=== PATIENT | female | born 1990 | race Caucasian/White ===

== ENCOUNTER 2022-04-24 23:15 | Emergency (ER) | payer BC, SELFPAY ==
--- NOTE | ~2022-04-24 | CT_ITS ---
EXAMINATION: CTA chest PE protocol DATE: 04/25/2022 01:58 INDICATION: Shortness of breath. TECHNIQUE: Computed tomography angiography (CTA) of the chest was performed with 100 mL Omnipaque-350 intravenous contrast timed to evaluate the pulmonary arteries. Coronal maximum intensity projection 3D-reconstructions were created by the technologist. Automated exposure control and iterative reconst ruction technique were employed. The dose-length product was 950.34 mGy-cm. COMPARISON: None. FINDINGS: There is a large right pleural effusion. There is a small right pneumothorax. There is smoo th septal thickening in the lungs, consistent with mild pulmonary edema. There are airspace opacities and volume loss involving the majority of right lung. There is mild atelectasis in left lung. There are mild airspace opacities in left lower lobe. Cardiomegaly is noted. No pericardial effusion. There is no pulmonary embolus. There is an aberrant right subclavian artery. There is mild periportal lymp hadenopathy. There are old healed right rib fractures. IMPRESSION: 1. No pulmonary embolus. Sensitivity is mildly decreased by motion artifact. 2. Large right hydropneumothorax with large fluid component and small gas component. 3. Airspace opacities and volume loss involving right lung, likely a combination of atelectasis and p neumonia. Mild airspace opacities in left lower lobe, consistent with pneumonia. 4. Mild periportal lymphadenopathy, likely reactive. Reviewed, dictated and finalized at location A. IMPRESSION: 1. No pulmonary embolus. Sensitivity is mildly decreased by motion artifact. 2. Large right hydropneumothorax with large fluid component and small gas compo nent. 3. Airspace opacities and volume loss involving right lung, likely a combinatio n of atelectasis and pneumonia. Mild airspace opacities in left lower lobe, con sistent with pneumonia. 4. Mild periportal lymphadenopathy, likely reactive.
[2022-04-24 23:26] VITALS: RESP 25; O2SAT 96
[2022-04-24 23:35] VITALS: O2SAT 97
--- NOTE | 2022-04-24 23:38 | ECG_ITS ---
Measurements Intervals [place] Rate: 131 P: 79 CO: 146 QRS: -57 QRSD: 94 T: 62 QT: 279 QTc: 413 Interpretive Statements SINUS TACHYCARDIA LEFT AXIS DEVIATION [QRS AXIS < -30] S1-S2-S3 PATTERN, CONSISTENT WITH PULMONARY DISEASE, RVH, OR NORMAL VARIANT INCOMPLETE RIGHT BUNDLE BRANCH BLOCK [90+ ms QRS DURATION, TERMINAL R IN V1/V2, 40+ ms S IN I/aVL/V4/V5/V6] NO PREVIOUS ECG AVAILABLE FOR COMPARISON Electronically Signed On 04-29-2022 10:19:15 CDT by Salbador Moon M.D.
--- NOTE | 2022-04-24 23:38 | ED.GENADULT ---
HPI - General Adult General Chief complaint: Shortness of Breath/Dyspnea <Georges Goff MD - Last Filed: 04/25/22 06:58> Stated complaint: SOB Sat 78% RA <Georges Goff MD - Last Filed: 04/25/22 06:58> Time Seen by Provider: 04/24/22 23:26 <Georges Goff MD - Last Filed: 04/25/22 06:58> History of Present Illness HPI narrative: 31-year-old female presented to the emergency department for evaluation of worsening shortness of breath. Patient states on April 08 she began developing some cough and shortness of breath. Patient states that she did take multiple COVID test that were negative. Patient reports tonight she had worsening shortness of breath. Patient does have chronic wounds to both upper extremities. Patient states she has not had follow-up for these wounds. Patient states that she did last injected fentanyl approximately 3 days ago. <Georges Goff MD - Last Filed: 04/25/22 06:58> 31-year-old female presented to the emergency department for evaluation of worsening shortness of breath. Patient states on April 08 she began developing some cough and shortness of breath. Patient states that she did take multiple COVID test that were negative. Patient reports tonight she had worsening shortness of breath. Patient does have chronic wounds to both upper extremities. Patient states she has not had follow-up for these wounds. Patient states that she did last injected fentanyl approximately 3 days ago. <Bobby Helton MD - Last Filed: 04/25/22 08:34> Related Data Allergies/adverse reactions: Allergies Allergy/AdvReac Type Severity Reaction Status Date / Time tramadol Allergy Intermediate Itching Verified 04/25/22 05:30 <Georges Goff MD - Last Filed: 04/25/22 06:58> Review of Systems Review of Systems: CONSTITUTIONAL: Fevers and generalized weakness EYES: Denies visual changes, redness, or discharge. ENT: Denies rhinorrhea, congestion, sore throat, or otalgia. CARDIOVASCULAR: Worsening edema RESPIRATORY: Shortness of breath GASTROINTESTINAL: Denies abdominal pain, nausea, vomiting, or diarrhea. GENITOURINARY: Denies dysuria or hematuria. SKIN: See HPI MUSCULOSKELETAL: Denies back pain, joint pain, or myalgia. NEUROLOGIC: Denies headache, numbness, or weakness. <Georges Goff MD - Last Filed: 04/25/22 06:58> [facility] Past Medical History Medical History: Medical History (Updated 04/25/22 @ 06:46 by Jaclyn Booth DO) Anxiety Borderline hypertension Degenerative disc disease Hypothyroidism Opioid abuse <Georges Goff MD - Last Filed: 04/25/22 06:58> Surgical History Surgical History: Surgical History (Updated 04/25/22 @ 06:31 by Jaclyn Booth DO) No history of previous surgery <Georges Goff MD - Last Filed: 04/25/22 06:58> Family History Family History: Family History Father Hypertension Mother Alcoholism Degenerative disc disease Drug addiction <Georges Goff MD - Last Filed: 04/25/22 06:58> Social History Social History: Social History (Updated 04/25/22 @ 06:34 by Jaclyn Booth DO) Social History: She has been addicted to opiates since 2016. She used daily and was in remission for urine half between 2017 in 2019. She started using again at that time in tries to inject fentanyl IV but due to scarring has been doing subcutaneous administration. Smoking status: Never smoker Alcohol intake: never Substance use: current Substance use type: heroin and opiates Other substance usage details: Fentanyl daily Additional living arrangements comments: She is single and lives alone. She has a small dog. Additional occupation/education comments: She has a master's degree. 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 <Georges Goff MD - Last Filed: 04/25/22 06:58> Exam Narrative: APPEARANCE
--- NOTE | 2022-04-24 23:53 | PC.NURSE ---
Pt very SOB, RR40 and SpO2 78% on RA while in triage, diaphoretic and very labored breathing. Pt placed on NRB@ 15L and O2 sat up to 95-97% and states that she is feeling much better.
[2022-04-25] VITALS (30 sets, daily range): BP systolic 110–137; BP diastolic 53–75; PULSE 103–127; RESP 20–44; TEMP 38.7; O2SAT 94–100
[2022-04-25] MEDS: SODIUM CHLORIDE 0.9% IV 1,000 ML 999 ML IV CONT (00:04)
[2022-04-25 00:06] LABS: Alveolar/Arterial O2 Gradient 580.5 mmHg; Fractional Inspired Oxygen 100 %; HCO3 ABG 26.6 mEq/l (22.0-26.0); Modified Allen's Test Unable to perform; Oxygen Saturation ABG 97.1 % (95.0-100.0); Oxyhemoglobin 94.7 % THb (90.0-100.0); PCO2 ABG 41.6 mmHg (35.0-45.0); PO2 ABG 90.9 mmHg (80.0-100.0); PO2 FiO2 Ratio Arterial Blood 0.91 %; Site Drawn RIGHT RADIAL; Total Hemoglobin 8.9 g/dL (12.0-18.0); pH ABG 7.424 (7.350-7.450)
[2022-04-25 00:07] LABS: Device NON-REBREATHER MASK
[2022-04-25 00:08] LABS: Basophils Absolute Auto 0.1 K/mm3 (0.0-0.1); Basophils Percent Auto 0.4 % (0.2-1.2); Eosinophils Absolute Auto 0.1 K/mm3 (0-0.3); Eosinophils Percent Auto 0.3 % (0-4.4); Immature Granulocyte Absolute 0.14 K/mm3 (0.00-0.031); Immature Granulocyte Percent A 0.9 % (0-0.5); Lymphocytes Absolute Auto 2.78 K/mm3 (0.9-3.2); Mean Corpuscular HGB Conc 27.6 g/dl (32-36); Mean Corpuscular Hemoglobin 18.4 pg (26-34); Mean Corpuscular Volume 66.7 fl (80-100); Mean Platelet Volume 10.1 fl (7.4-10.4); Monocytes Absolute Auto 1.3 K/mm3 (0.1-0.6); Monocytes Percent Auto 7.7 % (2.6-8.5); Neutrophils Absolute Auto 12.1 K/mm3 (1.3-6.7); Neutrophils Percent Auto 73.7 % (45.5-73.1); Nucleated Red Blood Cells Absolute Auto 0.3 K/mm3 (0.0-0.012); Nucleated Red Blood Cells Perc 1.6 % (0.0-0.2); Platelet Count Result 505 k/mm3 (150-375); Red Blood Count 4.35 M/mm3 (4.2-5.4); Red Cell Distribution Width 22.5 % (11.5-14.5); White Blood Count 16.4 K/mm3 (4.5-10.0)
[2022-04-25 00:18] LABS: Hypochromasia 2+ (NORMAL); Platelet Estimate Increased (Adequate)
[2022-04-25] MEDS: ALBUTEROL SULFATE NEB 2.5 MG/3 ML INH 5 MG INHALATION (00:20)
[2022-04-25 00:23] LABS: Alanine Aminotransferase 28 U/L (6-35); Albumin Level 3.6 g/dL (3.5-5.1); Alkaline Phosphatase 245 U/L (38-126); Anion Gap 14 mmol/L (8-16); Aspartate Amino Transferase 70 U/L (14-36); Bilirubin,Total 1.3 mg/dL (0.2-1.3); Blood Urea Nitrogen 19 mg/dL (7-17); Calcium 7.6 mg/dL (8.4-10.2); Carbon Dioxide 24 mmol/L (22-30); Chloride 94 mmol/L (98-107); Estimated CRCL calculation 118 ml/min; Estimated Glomerular Filt Rate > 60; Glucose 151 mg/dL (65-110); Potassium 4.8 mmol/L (3.4-5.0); Sodium 132 mmol/L (137-145)
[2022-04-25 00:31] LABS: NT Pro B Type Natriuretic Pept 3540 pg/mL (5-100)
--- NOTE | 2022-04-25 00:42 | PC.NURSE ---
POC preg test resulted negative
[2022-04-25 00:48] LABS: Appearance Urine Clear (Clear); Bilirubin Urine 1+ (Negative); Blood Urine 1+ (Negative); Color Urine Amber (Yellow); Glucose Urine UA Negative (Negative); Ketones Urine Negative (Negative); Leukocyte Esterase Ur Negative LEU/UL (Negative); Nitrate Urine Negative (Negative); Protein Urine 2+ mg/dL (Negative); Specific Grav Ur 1.025 (1.001-1.035); pH Urine 5.5 (5.0-9.0)
[2022-04-25 00:50] LABS: D Dimer 6.34 ug/mL (<0.48)
[2022-04-25 00:51] LABS: Mucus Urine Rare /lpf; Squamous Epithelial Cell Urine Rare /hpf (Few); WBC Urine 0-3 /hpf
[2022-04-25 00:52] LABS: Add Urine Microscopic? YES
[2022-04-25 00:54] LABS: Influenza A QL RT-PCR Negative (Negative); Influenza B QL RT-PCR Negative (Negative); SARS-CoV-2 RNA PCR Negative
[2022-04-25 01:06] LABS: Amphetamine Screen Urine Negative (Negative); Barbiturate Screen Urine Negative (Negative); Benzodiazepines Screen Urine Negative (Negative); Cannabinoid Screen Urine Negative (Negative); Cocaine Screen Urine Negative (Negative); Methadone Screen Urine Negative (Negative); Opiate Screen Urine Negative (Negative); Phencyclidine Screen Urine Negative (Negative)
[2022-04-25] MEDS: FUROSEMIDE INJ 40 MG/4 ML VIAL IV PUSH (02:26)
--- NOTE | 2022-04-25 02:40 | PC.NURSE ---
Temp upon axillary upon arrival was 103.5 now it is 99.5 after admin of APAP IV
[2022-04-25 03:15] LABS: Troponin I 0.037 ng/mL (0.000-0.034)
[2022-04-25 05:16] LABS: Troponin I 0.039 ng/mL (0.000-0.034)
--- NOTE | 2022-04-25 06:00 | PM.IMHP ---
H&P: HPI History of Present Illness Date/Time: 04/25/22 06:00 Chief Complaint: Cough, fever, shortness of breath Narrative: 31-year-old female with a past medical history of morbid obesity and IV drug abuse who presented to the ER with what she thought were COVID symptoms and shortness of breath since 04/08/2022. She reports on the she began having a nonproductive cough subjective fevers, chills and shortness of breath. Her symptoms would come and go on and off since that time. She thought that she had COVID in took for home COVID test which were negative. She reports that her shortness of breath of gotten progressively worse. She felt terrible. She thought that her mother was telling her to go to the ER. When the patient arrived to the ER she was satting 78% on room air. Her oxygen saturations improved to 99% on 15 L non-rebreather. She had a COVID PCR performed in the ER that was negative.She reports that she has had progressive shortness of breath over the last couple of weeks. It is been accompanied by increased lower extremity swelling. Her lower extremity swelling is worse because she has been so short of breath that she cannot lay down to sleep in is been falling asleep sitting up with her legs hanging in a chair. She denies any chest pain or palpitations. She has had a chronic wound to her right forearm from or IV drug use that is been going on for several months. When she 1st came to the ER she had a foul odor and her sleeve over sugar was frankly soiled with drainage. Does admit to IV and subq fentanyl use daily since 2018. On arrival to the ER patient was febrile with temperature of 101.6? she was tachycardic with heart rate in the 120s and her respiratory rate ranged from 25-50. The ER CTA of the chest was performed which demonstrated hydropneumothorax on the right with large volume with extensive atelectasis of the right long which is nearly completely atelectatic except for a small amount of aerated parenchyma in the right upper lobe. Septal thickening noted left lung base which may reflect a mild interstitial edema. Respiratory motion artifact degrades study. Study is nondiagnostic for pulmonary embolism. She snores and has chronic daytime fatigue and somnolence. She falls asleep bowel doing regular activities. She has never been tested for sleep apnea. I saw and examined the patient in the ER. Due to the patient's presentation and clinical picture I felt patient would be better served by transfer to tertiary care. I am highly suspicious that the patient has an empyema and will likely need further evaluation by Cardiothoracic surgery. Jacinda marquez asked the patient to be transferred to tertiary care. Review of Systems Review of Systems: 12 systems were reviewed with pertinent positives and negatives per HPI. Except as documented in the HPI, all other systems were reviewed and are negative. [facility] Past Medical History Medical History (Updated 04/25/22 @ 06:46 by Jaclyn Booth DO) Anxiety Borderline hypertension Degenerative disc disease Hypothyroidism Opioid abuse Surgical History Surgical History (Updated 04/25/22 @ 06:31 by Jaclyn Booth DO) No history of previous surgery Family History Family History Father Hypertension Mother Alcoholism Degenerative disc disease Drug addiction Social History Social History (Updated 04/25/22 @ 06:34 by Jaclyn Booth DO) Social History: She has been addicted to opiates since 2016. She used daily and was in remission for urine half between 2017 in 2019. She started using again at that time in tries to inject fentanyl IV but due to scarring has been doing subcutaneous administration. Smoking status: Never smoker Alcohol intake: never Substance use: current Substance use type: heroin and opiates Other substance usage details: Fentanyl daily Additional l
--- NOTE | 2022-04-25 06:58 | PC.NURSE ---
Spoke with Vivian from [facility] transfer center regarding the pt's transfer to [facility]. Vivian said she will call once the pt has a bed.
--- NOTE | 2022-04-25 07:14 | PC.NURSE ---
This nurse spoke with Vivian at the [facility] transfer center. Pt has a bed at [facility] 490 in the ICU number to call the nurse is [phone] for report
--- NOTE | 2022-04-25 07:28 | PC.NURSE ---
This nurse called [facility] at [phone] Etta Grayson took report and our [facility] day shift nurse was updated regarding this information reported.
--- NOTE | 2022-04-25 08:01 | PC.NURSE ---
Cristobal Ems accepted transfer to [facility] ICU Rm 490 ETA 20Min Trip # [phone]
== END 2022-04-25 09:25 | disposition short-term general hospital (02) ==
PROVIDERS: Emergency Medicine; Emergency Provider Emergency Medicine; PCP Family Medicine
DX: A41.9 Sepsis, unspecified organism (principal); R65.20 Severe sepsis without septic shock; J96.01 Acute respiratory failure with hypoxia; J94.2 Hemothorax; L98.493 Non-pressure chronic ulcer of skin of other sites with necrosis of muscle; L08.9 Local infection of the skin and subcutaneous tissue, unspecified; E03.9 Hypothyroidism, unspecified; F11.20 Opioid dependence, uncomplicated; R79.89 Other specified abnormal findings of blood chemistry; Z20.822 Contact with and (suspected) exposure to COVID-19; R03.0 Elevated blood-pressure reading, without diagnosis of hypertension; E66.01 Morbid (severe) obesity due to excess calories; Z68.43 Body mass index [BMI] 50.0-59.9, adult
CPT/HCPCS: 36415; 36600; 51702; 71275; 80053; 80307; 81001; 82805; 83605; 83880; 84484; 85025; 85055; 85380; 87040; 87077; 87186; 87502; 93005; 94002; 94640; 96365; 96366; 96367; 96375; 99285; C9803; J0131; J1940; J2543; J3370; J7030; Q9967; U0003; U0005

== ENCOUNTER 2024-06-27 11:12 | Outpatient (CLI) | payer BC, OTHER, SELFPAY ==
--- NOTE | ~2024-06-27 | MR_ITS ---
EXAMINATION: MR lumbar spine wo con DATE: 06/27/2024 12:05 INDICATION: Left-sided low back pain. TECHNIQUE: Magnetic resonance imaging (MRI) of the lumbar spine was performed without intravenous con trast. COMPARISON: Lumbar spine MRI 08/05/2011 FINDINGS: There is 5 degrees levocurvature of lumbar spine. There is mild chronic anterior wedging of T11 and T12 vertebral bodies. Intervertebral disc heights are normal. The distal spinal cord signal intensity is normal. The conus medullaris is at L1-L2. The following disc levels are specifically dis cussed: L1-L2: The disc does not extend beyond the endplate margin. There is no facet joint osteoarthritis. T here is no neural foraminal stenosis. There is no central canal stenosis. L2-L3: The disc does not extend beyond the endplate margin. There is mild bilateral facet joint osteo arthritis. There is no neural foraminal stenosis. There is no central canal stenosis. L3-L4: The disc does not extend beyond the endplate margin. There is mild bilateral facet joint osteo arthritis. There is no neural foraminal stenosis. There is no central canal stenosis. L4-L5: The disc does not extend beyond the endplate margin. There is mild right facet joint osteoarth ritis. There is no neural foraminal stenosis. There is no central canal stenosis. L5-S1: The disc is bulging. There is severe bilateral facet joint osteoarthritis. There is mild bilat eral neural foraminal stenosis. There is mild central canal stenosis. IMPRESSION: 1. Mild lumbar spondylosis, stable from 08/05/2011. Reviewed, dictated and finalized at location A.
== END 2024-06-27 11:13 | disposition home or self-care (01) ==
DX: M47.896 Other spondylosis, lumbar region (principal)
CPT/HCPCS: 72148